=== PATIENT | female | born 1980 | race Two or more races ===

== ENCOUNTER 2017-03-15 06:10 | Day surgery (SDC) | payer OTHER ==
[~2017-03-15 06:10] MED LIST: FIORICET 50-321 EACH PO
[2017-03-15] MEDS ORDERED: CODE1TAB37 PO (12:37)
[2017-03-15] MEDS ORDERED: DOXYCYCLINE HY100 MG PO (12:37)
== END 2017-03-15 16:00 | disposition home or self-care (01) ==
LOC: CIR.AMB 06:10
DX: O02.0 Blighted ovum and nonhydatidiform mole (principal)

== ENCOUNTER → 2018-04-28 | Emergency (ER) | payer OTHER ==
[~2018-04-28] VITALS: Ht 157.5 cm; Wt 51.3 kg
[~2018-04-28] MED LIST changes: +CODE1TAB37 PO; +DOXYCYCLINE HY100 MG PO
== END | disposition home or self-care (01) ==
LOC: ER 18:34
DX: R10.2 Pelvic and perineal pain (principal)

== ENCOUNTER 2021-01-22 11:42 | Emergency (ER) | payer OTHER ==
[~2021-01-22] VITALS: Ht 157.5 cm; Wt 46.7 kg
[2021-01-22] MEDS ORDERED: KETO10TA2 PO (12:48)
== END 2021-01-22 14:23 | disposition home or self-care (01) ==
LOC: ER 11:42
DX: G50.0 Trigeminal neuralgia (principal); B02.21 Postherpetic geniculate ganglionitis